=== PATIENT | male | born 1990 | race African-American/Black ===

== ENCOUNTER 2018-11-21 10:39 | Emergency (ER) | payer MEDICAID, OTHER ==
[~2018-11-21] VITALS: Ht 182.9 cm; Wt 100.0 kg
[2018-11-21] MEDS ORDERED: CARV6.2548 PO (10:46)
[2018-11-21] MEDS ORDERED: FURO-151 PO (10:46)
[2018-11-21] MEDS ORDERED: SODIUM CHLORIDE 0.9% 1,000 ML IV ONE (10:59)
[2018-11-21 11:21] LABS: BASOPHILS % 1.3 % (0.0-2.0); EOSINOPHILS % 3.6 % (0.0-5.0); HEMATOCRIT. 44.3 % (42.0-52.0); HEMOGLOBIN. 14.4 g/dL (14.0-18.0); LYMPHOCYTES % 36.5 % (20.0-50.0); MEAN CORPUSCULAR HEMOGLOBIN 26.3 pg (28.0-32.0); MEAN CORPUSCULAR VOLUME 80.7 fL (80.0-94.0); MEAN PLATELET VOLUME 8.5 fl (7.4-10.4); MONOCYTES % 8.1 % (2.0-8.0); NEUTROPHILS % 50.5 % (40.0-76.0); PLATELET 252 x1000/uL (130-400); RED BLOOD CELL COUNT 5.49 mill/uL (4.7-6.1); RED CELL DISTRIBUTION WIDTH 15.7 % (11.6-14.6)
[2018-11-21 11:27] LABS: CHLORIDE 111 mEq/L (98-107)
[2018-11-21 11:28] LABS: INR 1.1; PROTHROMBIN TIME 11.5 sec (9.6-11.0)
[2018-11-21 11:31] LABS: ETHANOL BLOOD < 10 mg/dL
[2018-11-21 12:42] LABS: CLARITY URINE CLEAR (CLEAR); COLOR URINE YELLOW (YELLOW); KETONES URINE NEGATIVE (NEGATIVE); LEUKOCYTE ESTERASE URINE NEGATIVE (NEGATIVE); NITRITE URINE NEGATIVE (NEGATIVE); OCCULT BLOOD URINE NEGATIVE (NEGATIVE); PROTEIN URINE 2+ (NEGATIVE); UROBILINOGEN URINE 0.2 E.U./dL (0.2-1.0)
[2018-11-21 15:00] VITALS: BP 115/76
[2018-11-21 17:01] LABS: *AMPHETAMINES SCREEN URINE NEGATIVE (NEGATIVE); *BARBITURATES SCREEN URINE NEGATIVE (NEGATIVE)
[2018-11-21 17:02] LABS: *BENZODIAZEPINES SCREEN URINE NEGATIVE (NEGATIVE); *COCAINE SCREEN URINE NEGATIVE (NEGATIVE)
[2018-11-21 17:05] LABS: CANNABINOID URINE SCREEN NEGATIVE (NEGATIVE); METHADONE URINE SCREEN NEGATIVE (NEGATIVE); OPIATES URINE SCREEN NEGATIVE (NEGATIVE); PHENCYCLIDINE URINE SCREEN NEGATIVE (NEGATIVE)
== END 2018-11-21 15:25 | disposition short-term general hospital (02) ==
LOC: ER 10:39 → CANBEDREQ 15:43
DX: T44.7X1A Poisoning by beta-adrenoreceptor antagonists, accidental (unintentional), initial encounter (principal); T50.1X1A Poisoning by loop [high-ceiling] diuretics, accidental (unintentional), initial encounter; T50.0X1A Poisoning by mineralocorticoids and their antagonists, accidental (unintentional), initial encounter; T39.011A Poisoning by aspirin, accidental (unintentional), initial encounter; R55 Syncope and collapse; R42 Dizziness and giddiness; N28.9 Disorder of kidney and ureter, unspecified; I50.9 Heart failure, unspecified; Y92.018 Other place in single-family (private) house as the place of occurrence of the external cause; I25.10 Atherosclerotic heart disease of native coronary artery without angina pectoris; Z95.810 Presence of automatic (implantable) cardiac defibrillator
CPT/HCPCS: 36415; 71045; 80053; 80305; 80320; 81003; 83605; 83880; 84484; 85025; 85610; 93005; 96360; 96361; 99291; J7030; G0480